=== PATIENT | female | born 1955 | race American Indian/Alaskan Native ===

== ENCOUNTER → 2023-11-11 11:03 | Outpatient (REF) | payer MEDICARE, SELFPAY | LOC: RAD 11:03 | PROVIDERS: ATTENDING PHYSICIAN Nurse Practitioner Family; FAMILY PHYSICIAN Student in an Organized Health Care Education/Training Program | DX: M79.671 Pain in right foot (principal) | CPT/HCPCS: 73630 ==

== ENCOUNTER → 2024-09-20 11:47 | Outpatient (REF) | payer MEDICARE, SELFPAY | LOC: HWRAD 11:47 | PROVIDERS: ATTENDING PHYSICIAN Nurse Practitioner Family | DX: R09.81 Nasal congestion (principal); H93.8X1 Other specified disorders of right ear | CPT/HCPCS: 70486 ==

== ENCOUNTER → 2025-02-06 14:15 | Outpatient (REF) | payer MEDICARE, SELFPAY | LOC: WDC 14:15 | PROVIDERS: ATTENDING PHYSICIAN Nurse Practitioner Family | DX: Z12.31 Encounter for screening mammogram for malignant neoplasm of breast (principal) | CPT/HCPCS: 77063; 77067 ==

== ENCOUNTER → 2025-04-14 11:36 | Outpatient (REF) | payer MEDICARE, SELFPAY | LOC: MRI 3T 11:36 | PROVIDERS: ATTENDING PHYSICIAN Otolaryngology; FAMILY PHYSICIAN Nurse Practitioner Family | DX: H91.90 Unspecified hearing loss, unspecified ear (principal) | CPT/HCPCS: 70553; A9575 ==